=== PATIENT | male | born 1950 | race African-American/Black ===

== ENCOUNTER 2022-05-28 00:43 | Inpatient (IN) ==
[2022-05-28 00:57] LABS: ABG Base Excess -3 mEq/L (-2 to 3); ABG HCO3 22 mEq/L (21-27); ABG Oxygen Saturation 96 % (95-98); ABG PCO2 40 mmHg (35-45); ABG PH 7.35 pH Units (7.32-7.45); ABG PO2 83 mmHg (85-104); ABG TCO2 24 mEq/L (20-26)
[2022-05-28] MEDS ORDERED: Morphine Sulfate 2 MG/ML SYRINGE ONE (00:57)
[2022-05-28] MEDS ORDERED: Morphine Sulfate 2 MG/ML SYRINGE IVP ONE ×2 (00:59→04:51)
[2022-05-28] MEDS ORDERED: *HR* Ticagrelor 90 MG TABLET PO ONE (01:13)
[2022-05-28] MEDS ORDERED: Aspirin 81 MG TAB.CHEW PO ONE (01:13)
[2022-05-28] MEDS ORDERED: *HR* Heparin 10,000 UNIT/10 ML VIAL ONE (01:31)
[2022-05-28] MEDS ORDERED: Nitroglycerin 1,000 MCG/5 ML VIAL IV ONE (01:31)
[2022-05-28] MEDS ORDERED: Iopamidol - 370 200 ML INFUS..BTL ONE ×2 (01:31→02:29)
[2022-05-28] MEDS ORDERED: 0.9 % Sodium Chloride 2,000 ML ONE ×2 (01:31→08:32)
[2022-05-28] MEDS ORDERED: Heparin 1,000 UNITS/500 mL 500 ML ONE ×2 (01:31→02:09)
[2022-05-28 01:33] LABS: Hematocrit 27.7 % (37.5-50.1); Hemoglobin 8.8 g/dL (12.9-16.9); Immature Granulocytes % 1.5 % (0-4); Mean Corpuscular HGB Conc 31.8 g/dL (31.6-35.5)
[2022-05-28 01:35] LABS: Basophils % 0.1 %; Immature Platelets 10.8 % (1.1-6.1); Lymphocytes # 0.8 K/mcL (0.6-4.6); Lymphocytes % 3.9 %; Mean Corpuscular Volume 69.3 fL (83.0-100.0); Monocytes # 1.4 K/mcL (0.0-1.3); Monocytes % 6.9 %; Neutrophils # 18.1 K/mcL (1.6-8.9); Nucleated Red Blood Cells 0.1 /100 WBC (0); Platelet Count 203 K/mcL (140-400); Red Cell Distribution Width 24.9 % (11.5-14.5); Segmented Neutrophils % 87.6 %; White Blood Count 20.7 K/mcL (4.3-11.1)
[2022-05-28] MEDS ORDERED: *HR* FentaNYL (PF) 100 MCG/2 ML VIAL ONE (01:40)
[2022-05-28] MEDS ORDERED: *HR* Midazolam HCl 2 MG/2 ML VIAL ONE (01:40)
[2022-05-28 01:44] LABS: INR 3.3
[2022-05-28 02:12] LABS: Albumin/Globulin Ratio 1.5 (1.1-2.2); Anisocytosis 2+ (Not Present); Bilirubin,Direct 0.5 mg/dL (0.0-0.2); Bilirubin,Indirect 0.7 mg/dL (0.0-1.0); Bilirubin,Total 1.2 mg/dL (0.3-1.0); Calcium 9.5 mg/dL (8.6-10.3); Globulin 2.7 g/dL (2.4-3.5); Magnesium 2.4 mg/dL (1.6-2.6); Microcytosis Present (Not Present); Poikilocytosis 1+ (Not Present); Potassium 5.9 mEq/L (3.5-5.1); Target Cells 1+ (Not Present); Total Protein 6.7 g/dL (6.4-8.9); Troponin I 0.59 ng/mL (< 0.04)
[2022-05-28 02:13] LABS: Schistocytes 1+ (Not Present)
[2022-05-28 02:14] LABS: Platelet Estimate Normal (Normal)
[2022-05-28] MEDS ORDERED: Naloxone 0.4 MG/ML INJ IVP PRN (03:26)
[2022-05-28] MEDS ORDERED: *HR* Heparin 5,000 UNIT/ML VIAL IVP ONE (03:28)
[2022-05-28] MEDS ORDERED: *HR* Heparin 5,000 UNIT/ML VIAL IVP PRN ×2 (03:28)
[2022-05-28] MEDS: Heparin 25,000UNIT/250ML 1/2NS 25,000 UNIT/250 ML IV.SOLN IVC SCH ×2 (03:59→19:29)
[2022-05-28] MEDS ORDERED: SODIUM CHLORIDE IVC SCH (04:00)
[2022-05-28] MEDS ORDERED: NOREPINEPHRINE IVC SCH (04:00)
[2022-05-28] MEDS: Amiodarone Premix 150 MG/100 ML BAG IVPB ONE ×2 (04:03→04:37)
[2022-05-28] MEDS ORDERED: Amiodarone 450 MG in 0.9 % Sodium Chloride Excel Bg 241 ML IVC ONE (04:06)
[2022-05-28] MEDS ORDERED: Amiodarone 450 MG in 0.9 % Sodium Chloride Excel Bg 241 ML IVC SCH (04:15)
[2022-05-28] MEDS ORDERED: Calcium Gluconate 1gm/50mL 1 GM/50 ML BAG IVPB ONE (04:33)
[2022-05-28] MEDS ORDERED: SODIUM ZIRCONIUM CYCLOSILICATE 5 GM POWD.PACK PO ONE (04:33)
[2022-05-28] MEDS ORDERED: WATER IVC ONE (04:45)
[2022-05-28] MEDS ORDERED: AMIODARONE IVC ONE (04:45)
[2022-05-28] MEDS ORDERED: D5 IVC ONE (04:45)
[2022-05-28 05:23] LABS: ABG Base Excess -4 mEq/L (-2 to 3); ABG HCO3 22 mEq/L (21-27); ABG Oxygen Saturation 86 % (95-98); ABG PCO2 42 mmHg (35-45); ABG PH 7.32 pH Units (7.32-7.45); ABG PO2 56 mmHg (85-104); ABG TCO2 23 mEq/L (20-26); Blood Gas Pressure Support 5 cm H2O
[2022-05-28] MEDS ORDERED: Phenylephrine 20 MG in 0.9 % Sodium Chloride 250 ML IVC SCH (05:45)
[2022-05-28] MEDS ORDERED: 0.9 % Sodium Chloride 1,000 ML ONE (06:14)
[2022-05-28] MEDS ORDERED: 0.9 % Sodium Chloride 250 ML IVC PRN (08:15)
[2022-05-28] MEDS ORDERED: 0.9 % Sodium Chloride 2,000 ML PRIME SCH (08:15)
[2022-05-28] MEDS ORDERED: Ethyl Chloride Spray Bottle (104 SPRAY/BOTTLE) TP PRN (08:15)
[2022-05-28 10:38] LABS: Adenovirus Not Detected (Not Detect); Bordetella Pertussis Not Detected (Not Detect); Chlamydophila pneumoniae Not Detected (Not Detect); Coronavirus 229E Not Detected (Not Detect); Coronavirus HKU1 Not Detected (Not Detect); Coronavirus NL63 Not Detected (Not Detect); Coronavirus OC43 Not Detected (Not Detect); Human Metapneumovirus Not Detected (Not Detect); Human Rhinovirus/Enterovirus Not Detected (Not Detect); Influenza A Subtype 2009 H1 Not Detected (Not Detect); Influenza B Not Detected (Not Detect); Mycoplasma pneumoniae Not Detected (Not Detect); Parainfluenza Virus 1 Not Detected (Not Detect); Parainfluenza Virus 2 Not Detected (Not Detect); Parainfluenza Virus 3 Not Detected (Not Detect); Parainfluenza Virus 4 Not Detected (Not Detect); Respiratory Syncytial Virus Not Detected (Not Detect)
[2022-05-28 10:41] LABS: SARS-CoV-2 DETECTED (Not Detect)
[2022-05-28 10:51] LABS: Hepatitis B Surface Antibody 490.72 mIU/mL
[2022-05-28] MEDS ORDERED: WATER IVC SCH (11:00)
[2022-05-28] MEDS ORDERED: AMIODARONE IVC SCH (11:00)
[2022-05-28] MEDS ORDERED: D5 IVC SCH (11:00)
[2022-05-28 11:02] LABS: Hepatitis B Surface Antigen Nonreactive (Nonreactive)
[2022-05-28 14:49] LABS: Basophils % 0.1 %; Hematocrit 25.8 % (37.5-50.1); Hemoglobin 8.5 g/dL (12.9-16.9); INR 2.7; Immature Granulocytes % 1.5 % (0-4); Immature Platelets 12.6 % (1.1-6.1); Lymphocytes # 0.2 K/mcL (0.6-4.6); Lymphocytes % 1.2 %; Mean Corpuscular HGB Conc 32.9 g/dL (31.6-35.5); Mean Corpuscular Hemoglobin 22.3 pg (28.0-33.3); Mean Corpuscular Volume 67.7 fL (83.0-100.0); Monocytes # 2.1 K/mcL (0.0-1.3); Neutrophils # 16.6 K/mcL (1.6-8.9); Nucleated Red Blood Cells 0.2 /100 WBC (0); Platelet Count 168 K/mcL (140-400); Prothrombin Time 29.4 Seconds (9.4-12.1); Red Blood Count 3.81 M/mcL (4.19-5.50); Red Cell Distribution Width 25.2 % (11.5-14.5); Segmented Neutrophils % 86.2 %; White Blood Count 19.3 K/mcL (4.3-11.1)
[2022-05-28 14:52] LABS: Activated Partial Thrombo Time 41.5 Seconds (26.0-36.0)
[2022-05-28 15:05] LABS: Calcium 9.1 mg/dL (8.6-10.3); Potassium 4.4 mEq/L (3.5-5.1)
[2022-05-28 15:09] LABS: Anisocytosis 3+ (Not Present); Hypochromasia Present (Not Present); Poikilocytosis 1+ (Not Present); Target Cells 1+ (Not Present)
[2022-05-28 15:11] LABS: Polychromasia 1+ (Not Present); Spherocytes 1+ (Not Present)
[2022-05-28 15:12] LABS: Ovalocytes 1+ (Not Present)
[2022-05-28 15:13] LABS: Platelet Estimate Normal (Normal); Schistocytes 1+ (Not Present)
[2022-05-28] MEDS: Morphine Sulfate 2 MG/ML SYRINGE IVP PRN ×2 (15:25→22:46)
[2022-05-28] MEDS ORDERED: SODIUM CHLORIDE 0.9% IVPB ONE (15:27)
[2022-05-28] MEDS ORDERED: DESMOPRESSIN ACETATE IVPB ONE (15:27)
[2022-05-28 15:43] LABS: Troponin I 0.61 ng/mL (< 0.04)
[2022-05-28] MEDS ORDERED: Norepinephrine 32 MG/250 ML IV.SOLN IVC SCH (20:00)
[2022-05-28] MEDS ORDERED: 0.9 % Sodium Chloride 250 ML ONE (21:40)
[2022-05-28] MEDS ORDERED: *HR* Midazolam HCl 5 MG/5 ML VIAL IVP ONE (23:00)
[2022-05-28] MEDS ORDERED: FentaNYL (PF) 1,000 MCG/100 ML IV.SOLN ONE (23:40)
[2022-05-28] MEDS ORDERED: FentaNYL (PF) 1,000 MCG/100 ML IV.SOLN IVC SCH (23:45)
[2022-05-28] MEDS ORDERED: Midazolam HCl 50 MG/50 ML IV.SOLN IVC SCH (23:45)
[2022-05-28] MEDS ORDERED: Chlorhexidine Rinse 15 ML MOUTHWASH MM SCH (23:45)
[2022-05-28] MEDS ORDERED: Artificial Tears SOLN 15 ML BOTTLE BOTH EYES PRN (23:49)
[2022-05-29] MEDS ORDERED: Artificial Tears SOLN 15 ML BOTTLE BOTH EYES SCH
== END 2022-05-29 00:32 | disposition expired ==
LOC: EMEROOARM 00:43 → ICNU 01:51
PROVIDERS: ADMIT Internal Medicine Cardiovascular Disease; ATTEND Internal Medicine Cardiovascular Disease